=== PATIENT | male | born 1950 | race Caucasian/White ===

== ENCOUNTER 2016-04-04 00:13 | Emergency (ER) | payer OTHER ==
[2016-04-04] MEDS ORDERED: OPTIRAY 350 100 ML VIAL HMH IV ONE (00:14)
[2016-04-04] MEDS ORDERED: ONDANSETRON 4 MG VIAL ONE (01:55)
[2016-04-04] MEDS ORDERED: MORPHINE 4 MG/ML SYR ONE (01:55)
[2016-04-04] MEDS ORDERED: SODIUM CHLORIDE 0.9% 1,000 ML ONE (01:56)
[2016-04-04] MEDS ORDERED: DICYCLOMINE 10 MG CAP ONE (05:06)
== END 2016-04-04 06:15 | disposition home or self-care (01) ==
LOC: ER 00:13
DX: K59.00 Constipation, unspecified (principal); K52.9 Noninfective gastroenteritis and colitis, unspecified; Z79.899 Other long term (current) drug therapy; F17.210 Nicotine dependence, cigarettes, uncomplicated
CPT/HCPCS: 36415; 74177; 80053; 81001; 83605; 83690; 85025; 96361; 96374; 96375; 99284; J2270; J2405; Q9967